=== PATIENT | female | born 1990 | race Caucasian/White ===

== ENCOUNTER 2016-06-08 10:01 | Emergency (ER) | payer MEDICAID ==
[~2016-06-08] VITALS: Ht 157.5 cm; Wt 90.7 kg
[2016-06-08 10:21] VITALS: BP 130/76
--- NOTE | 2016-06-08 10:25 | NUR ---
Patient taken to bed 06 via wheelchair per family member.
--- NOTE | 2016-06-08 10:30 | NUR ---
PT ASSISTED TO THE RESTROOM BY FRIEND VIA WHEEL CHAIR
--- NOTE | 2016-06-08 10:30 | NUR ---
PT PRESENTS TO ER W/C/O RIGHT HIP PAIN SINCE LAST NOC. PT DENIES ANY FALL OR TRAUMA; DENIES N/V/D; SKIN IS PINK/WARM/DRY; AAOX4 WITH EVEN AND STEADY GAIT; LUNGS CLEAR BL; HR EVEN AND REGULAR; PT DENIES ANY FEVER, CP, SOB, OR COUGH AT THIS TIME; PATIENT STATES PAIN OF 10/10 AT THIS TIME; VSS; PATIENT POSITIONED FOR COMFORT; HOB ELEVATED; BEDRAILS UP X2; BED DOWN. ER MD MADE AWARE OF PT STATUS.
--- NOTE | 2016-06-08 11:18 | NUR ---
Dr. Muhammad evaluating patient at bedside.
[2016-06-08] MEDS ORDERED: KETOROLAC 60 MG/2 ML VIAL IM ONE (11:25)
[2016-06-08] MEDS ORDERED: HYDROcodone/APAP 5/325 MG 1 TAB TAB PO ONE (11:25)
--- NOTE | 2016-06-08 11:37 | NUR ---
AAO TAKEN TO XRAY VIA [facility] BY YURI LOPEZ
[2016-06-08 12:43] VITALS: BP 115/62
--- NOTE | 2016-06-08 12:43 | NUR ---
Patient discharged with v/s stable. Written and verbal after care instructions given and explained. Patient alert, oriented and verbalized understanding of instructions. Ambulatory with steady gait. All questions addressed prior to discharge. ID band removed. Patient advised to follow up with PMD. Rx of NORCO, NAPROSYN given. Patient educated on indication of medication including possible reaction and side effects. Opportunity to ask questions provided and answered.
== END 2016-06-08 12:43 | disposition home or self-care (01) ==
LOC: MED 10:01
DX: M54.41 Lumbago with sciatica, right side (principal); R03.0 Elevated blood-pressure reading, without diagnosis of hypertension
CPT/HCPCS: 72100; 73502; 81002; 81025; 96372; 99284; J1885

== ENCOUNTER 2016-07-25 01:55 | Emergency (ER) | payer MEDICAID ==
[~2016-07-25] VITALS: Ht 157.5 cm; Wt 90.7 kg
[2016-07-25 02:02] VITALS: BP 127/73
--- NOTE | 2016-07-25 02:31 | NUR ---
PT TAKEN TO BED 3
--- NOTE | 2016-07-25 02:34 | NUR ---
26 Y/O F W/C/O R HIP PAIN WHICH RADIATES TO R LOWER LEG X 2 DAYS GETTING WORSE LAST NIGHT. PT DENIES ANY N/V OR FEVER. 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 NO S/S OF DISTRESS NOTED, ER MD MADE AWARE.
[2016-07-25] MEDS ORDERED: HYDROcodone/APAP 5/325 MG 1 TAB TAB PO ONE (02:50)
[2016-07-25] MEDS ORDERED: KETOROLAC 30 MG/ML VIAL IM ONE (02:50)
--- NOTE | 2016-07-25 03:30 | NUR ---
Dr. Hernández evaluating patient at bedside.
[2016-07-25 03:43] VITALS: BP 117/63
--- NOTE | 2016-07-25 03:43 | NUR ---
Patient discharged with v/s stable. Written and verbal after care instructions given and explained. Patient alert, oriented and verbalized understanding of instructions. Ambulatory with steady gait. All questions addressed prior to discharge. ID band removed. Patient advised to follow up with PMD TOMORROW OR RETURN TO ER IF CONDITION WORSENS. Rx of TYLENOL WITH CODEINE, AND NAPROSYN given. Patient educated on indication of medication including possible reaction and side effects. Opportunity to ask questions provided and answered.
== END 2016-07-25 03:43 | disposition home or self-care (01) ==
LOC: MED 01:55
DX: M25.551 Pain in right hip (principal)
CPT/HCPCS: 73502; 81002; 81025; 96372; 99284; J1885

== ENCOUNTER 2018-07-03 19:44 | Emergency (ER) | payer MEDICAID ==
[~2018-07-03] VITALS: Ht 162.6 cm; Wt 83.9 kg
[2018-07-03 19:59] VITALS: BP 112/83
--- NOTE | 2018-07-03 19:59 | NUR ---
PT AMBULATED W/ STEADY GATE BACK TO [facility]. PT ACTING APPROPRIATLY.
--- NOTE | 2018-07-03 20:36 | NUR ---
PT ABMULATED TO ER BED 03
--- NOTE | 2018-07-03 20:41 | NUR ---
PA AT BEDSIDE
--- NOTE | 2018-07-03 20:43 | NUR ---
28 YO F BIB SELF PRESENTS TO THE ED C/O 01/10 STABBING BILATERAL HIP/LEG PAIN X 2 WEEKS. PT DENIES RECENT FALLS OR TRAUMA. PT STATES SHE WOKE UP ONE MORNING WITH A SWOLLEN BACK AND THE PAIN STARTED SPREADING TO HER LEGS AND HAS GOTTEN WORSE SINCE THEN. PT STATES SHE AMBULATES WITH MILD DIFFICULTY. -- NO GROSS TRAUMA NOTED. PMH: DENIES RX: NAPROXSYN AT 0500 FOR LEG PAIN PT POSITIONED FOR COMFORT. HOB ELEVATED. SIDE RAIL UP X 1. BED IN LOWEST POSITION. VSS. NO APPARENT DISTRESS AT THIS TIME.
[2018-07-03] MEDS ORDERED: HYDROcodone/APAP 5/325 MG 1 TAB TAB PO ONE (20:55)
[2018-07-03] MEDS ORDERED: KETOROLAC 60 MG/2 ML VIAL IM ONE (20:55)
[2018-07-03 21:58] VITALS: BP 108/47
--- NOTE | 2018-07-03 21:58 | NUR ---
Patient discharged with v/s stable. Written and verbal after care instructions given and explained. Patient alert, oriented and verbalized understanding of instructions. Ambulatory with steady gait. All questions addressed prior to discharge. ID band removed. Patient advised to follow up with PMD. Rx of Ibuprofen and [place] given. Patient educated on indication of medication including possible reaction and side effects. Opportunity to ask questions provided and answered.
== END 2018-07-03 21:58 | disposition home or self-care (01) ==
LOC: MED 19:44
DX: M54.42 Lumbago with sciatica, left side (principal); M54.41 Lumbago with sciatica, right side
CPT/HCPCS: 96372; 99283; J1885

== ENCOUNTER 2018-07-08 22:18 | Emergency (ER) | payer MEDICAID ==
[~2018-07-08] VITALS: Ht 162.6 cm; Wt 86.2 kg
--- NOTE | 2018-07-08 22:30 | NUR ---
TO LOBBY A/W BED, PABLO RIOS NOTED
--- NOTE | 2018-07-08 23:33 | NUR ---
PT WHEELCHAIRED TO ER BED 01
[2018-07-09] MEDS ORDERED: MORPHINE SULFATE 4 MG/ML SYR IM ONE (00:10)
[2018-07-09 00:39] VITALS: BP 122/74
--- NOTE | 2018-07-09 00:39 | NUR ---
Patient discharged with v/s stable. Written and verbal after care instructions given and explained. Patient alert, oriented and verbalized understanding of instructions. Ambulatory with steady gait. All questions addressed prior to discharge. ID band removed. Patient advised to follow up with PMD. Rx of MEDROL DOSEPAK, ROBAXIN, AND TRAMADOL given. Patient educated on indication of medication including possible reaction and side effects. Opportunity to ask questions provided and answered.
== END 2018-07-09 00:39 | disposition home or self-care (01) ==
LOC: MED 22:18
DX: M54.42 Lumbago with sciatica, left side (principal)
CPT/HCPCS: 96372; 99283; J2270

== ENCOUNTER 2020-11-19 01:35 | Emergency (ER) | payer MEDICAID ==
[~2020-11-19] VITALS: Ht 162.6 cm; Wt 90.7 kg
[2020-11-19 02:00] VITALS: BP 148/90
--- NOTE | 2020-11-19 02:03 | NUR ---
TO LOBBY A/W BED VIA WHEELCHAIR
--- NOTE | 2020-11-19 02:40 | NUR ---
TO ER BED 1
[2020-11-19] MEDS ORDERED: ACETAMINOPHEN EXTRA STRENGTH 500 MG TAB PO ONE (02:45)
--- NOTE | 2020-11-19 02:45 | NUR ---
30 YO F BIB SIG OTHER FOR L LOWER LEG PAIN. PT STATES SHE FELT "SNAPPING" TO L LEG X3 DAYS AGO AFTER SHE WAS JUMPING. PT STATES SHE HAS BRUISING AND PAIN UNRELIEVED FROM NAPROXEN/MOTRIN. L LEG HAS DISCOLORATION. TO CALF AREA, MINIMAL ROM NOTED. SKIN INTACT. DANNA LOCKED IN LOWEST POSITION HX: DENIES LMP: 11/01 NKA
[2020-11-19] MEDS ORDERED: IBUP-2218 PO (03:37)
[2020-11-19 04:30] VITALS: BP 125/87
== END 2020-11-19 04:30 | disposition home or self-care (01) ==
LOC: MED 01:35
DX: M79.672 Pain in left foot (principal); Z79.899 Other long term (current) drug therapy
CPT/HCPCS: 73590; 93971; 99284

== ENCOUNTER 2021-10-13 15:23 | Emergency (ER) | payer MEDICAID ==
[~2021-10-13] VITALS: Ht 162.6 cm; Wt 95.3 kg
[~2021-10-13 15:23] MED LIST: IBUP-2218 PO
[2021-10-13 15:28] VITALS: BP 126/45
--- NOTE | 2021-10-13 15:31 | NUR ---
PT AMBULATED WITH STEADY GAIT TO THE [facility]
[2021-10-13] MEDS ORDERED: IBUP-2213 PO (16:27)
[2021-10-13] MEDS ORDERED: PRED20TA5 PO (16:27)
[2021-10-13] MEDS: KETOROLAC 30 MG/ML VIAL IM ONE (16:32)
--- NOTE | 2021-10-13 16:44 | NUR ---
PT CLEARED FOR DISCHARGE BY CECIL BOYD. INSTRUCTIONS FOR SCIATICA REHAB PROVIDED. RX OF MOTRIN AND PREDNISONE GIVEN; ALL MEDICATION INSTRUCTIONS AND SIDE EFFECTS EXPLAINED PRIOR TO D/C.
== END 2021-10-13 16:44 | disposition home or self-care (01) ==
LOC: MED 15:23
DX: M54.32 Sciatica, left side (principal)
CPT/HCPCS: 81002; 81025; 96372; 99283; J1885

== ENCOUNTER 2021-10-22 15:20 | Emergency (ER) | payer MEDICAID ==
[~2021-10-22] VITALS: Ht 162.6 cm; Wt 94.3 kg
[~2021-10-22 15:20] MED LIST changes: +IBUP-2213 PO; +PRED20TA5 PO
[2021-10-22 15:26] VITALS: BP 137/59
--- NOTE | 2021-10-22 15:33 | NUR ---
PT AMBULATED TO BED 3 WITH STEADY GAIT
--- NOTE | 2021-10-22 15:54 | NUR ---
31 Y/O FEMALE C/O OF NUMBNESS IN THE LEFT LEG X3DAYS, C/O OF TINGLING IN THE LEFT THIGH. DENIES ANY TRAUMA/INJURY. PT STATED THAT SHE HAD SCIATICA PAIN IN THE PAST AND THIS IS WHAT IT FELLS LIKE. DENIES CHEST PAIN, SOB, AND N/V/D. A&OX4, SKIN INTACT, VITALS WNL, AND STEADY GAIT WITH SMALL LIMP. NKA PMH: SCIATICA
[2021-10-22] MEDS ORDERED: LIDOCAINE 5% 1 EA PATCH TP ONE (16:25)
[2021-10-22] MEDS ORDERED: methocarbamoL 500 MG TAB PO ONE (16:25)
[2021-10-22] MEDS ORDERED: KETOROLAC 30 MG/ML VIAL IM ONE (16:25)
[2021-10-22] MEDS ORDERED: NAPR-54 PO (16:40)
[2021-10-22] MEDS ORDERED: METH-1681 PO (16:40)
[2021-10-22] MEDS ORDERED: LID5T TP (17:04)
[2021-10-22 17:23] VITALS: BP 137/59
--- NOTE | 2021-10-22 17:25 | NUR ---
Patient discharged with v/s stable. Written and verbal after care instructions given and explained. Patient alert, oriented and verbalized understanding of instructions. Ambulatory with steady gait. All questions addressed prior to discharge. ID band removed. Patient advised to follow up with PMD. Rx of LIDOCAINE PATCH AND NAPROXEN given. Patient educated on indication of medication including possible reaction and side effects. Opportunity to ask questions provided and answered.
== END 2021-10-22 17:25 | disposition home or self-care (01) ==
LOC: MED 15:20
DX: M54.16 Radiculopathy, lumbar region (principal)
CPT/HCPCS: 96372; 99283; J1885

== ENCOUNTER 2022-01-01 19:36 | Emergency (ER) | payer MEDICAID ==
[~2022-01-01] VITALS: Ht 162.6 cm; Wt 90.7 kg
[~2022-01-01 19:36] MED LIST changes: +LID5T TP; +METH-1681 PO; +NAPR-54 PO
[2022-01-01 19:50] VITALS: BP 152/77
--- NOTE | 2022-01-01 20:38 | NUR ---
Dr. Liriano examining patient.
[2022-01-01] MEDS ORDERED: KETOROLAC 60 MG/2 ML VIAL IM ONE (20:50)
--- NOTE | 2022-01-01 21:11 | NUR ---
Patient taken to X-ray via WC.
[2022-01-01] MEDS ORDERED: NAPR-1717 PO (21:46)
[2022-01-01 22:00] VITALS: BP 142/77
== END 2022-01-01 22:00 | disposition home or self-care (01) ==
LOC: MED 19:36
DX: S43.402A Unspecified sprain of left shoulder joint, initial encounter (principal); V49.88XA Car occupant (driver) (passenger) injured in other specified transport accidents, initial encounter; Y93.89 Activity, other specified; Y92.89 Other specified places as the place of occurrence of the external cause; Y99.8 Other external cause status
CPT/HCPCS: 29105; 73030; 96372; 99283; J1885